=== PATIENT | male | born 1945 | race Caucasian/White ===

== ENCOUNTER 2018-06-11 06:01 | Day surgery (SDC) | payer MEDICARE ==
[2018-06-10 12:37] LABS: BASOPHILS # (AUTO) 0.1 X10'3 (0-0.2); BASOPHILS % (AUTO) 1.1 % (0-1); EOSINOPHILS # (AUTO) 0.1 X10'3 (0-0.9); EOSINOPHILS % (AUTO) 1.4 % (0-6); HEMATOCRIT 42.9 % (42.0-52.0); HEMOGLOBIN 14.4 g/dl (14.0-17.9); LYMPHOCYTES % (AUTO) 18.2 % (21-51); MEAN CORPUSCULAR HEMOGLOBIN 30.3 PG (27.0-31.0); MEAN CORPUSCULAR HGB CONC 33.6 g/dL (33.0-36.5); MEAN CORPUSCULAR VOLUME 90.3 FL (78-98); MEAN PLATELET VOLUME 10.8 FL (7.4-10.4); MONOCYTES # (AUTO) 0.6 X10'3 (0-0.9); MONOCYTES % (AUTO) 10.1 % (2-12); NEUTROPHILS # (AUTO) 3.9 X10'3 (1.8-7.7); NEUTROPHILS % (AUTO) 69.2 % (42-75); PLATELET COUNT 160 X10'3 (140-440); RED BLOOD COUNT 4.75 X10'6 (4.70-6.10); WHITE BLOOD COUNT 5.6 X10'3 (4.5-11.0)
[2018-06-10 12:42] LABS: ALBUMIN 3.5 G/DL (3.4-5.0); ANION GAP 8 (8-16); BLOOD UREA NITROGEN 13 MG/DL (7-18); BUN/CREATININE RATIO 12.3 (5.4-32.0); CALCIUM 8.8 MG/DL (8.5-10.1); CHLORIDE 104 MMOL/L (99-107); CREATININE 1.06 MG/DL (0.60-1.10); GLUCOSE 137 MG/DL (70-104); POTASSIUM 3.9 MMOL/L (3.5-5.1); SODIUM 141 MMOL/L (135-145); TOTAL CARBON DIOXIDE 28.8 MMOL/L (24-32); eGFR 69 ML/MIN
[2018-06-10 12:49] LABS: INR 1.1 INR; PARTIAL THROMBOPLASTIN TIME 25 SECONDS (22-32); PROTHROMBIN TIME 10.7 SECONDS (9.0-12.0)
[2018-06-10 13:11] LABS: LARGE PLATELETS FEW; PLATELET ESTIMATE NORMAL
[~2018-06-11] VITALS: Ht 170.2 cm; Wt 71.9 kg
[2018-06-11] VITALS (14 sets, daily range): BP systolic 115–143; BP diastolic 55–99
[~2018-06-11 06:01] MED LIST: ALFU10TA10 PO; ASPI-611 PO; ATOR80TA PO; FINA5TAB11 PO; FLUO20CA39 PO; METO-395 PO; NAPR220C15 PO; NIAC1000 PO; NITR0.4T48 SL; ROSU40TA PO; VENL150C58 PO; VITA400C65 PO
[2018-06-11] MEDS ORDERED: sod bicarbonate 150mEq in D5W 1,150 ML IV ONE (06:20)
[2018-06-11] MEDS ORDERED: LORazepam 0.5 MG tablet PO PRN (06:20)
[2018-06-11] MEDS ORDERED: diphenhydrAMINE 25mg capsule PO PRN (06:20)
[2018-06-11] MEDS ORDERED: METO-539 PO (06:44)
[2018-06-11] MEDS ORDERED: EZET10TA14 PO (06:44)
[2018-06-11] MEDS ORDERED: KRIL1CAP19 PO (06:44)
[2018-06-11] MEDS ORDERED: ROSU20TA2 PO (06:44)
[2018-06-11] MEDS ORDERED: normal saline 1000ml 1,000 ML IV SCH (07:05)
[2018-06-11] MEDS ORDERED: verapamil 2.5 mg/ml inj IV ONE (07:44)
[2018-06-11] MEDS ORDERED: iohexol 350MG/ML 100ml bottle IV ONE ×3 (07:44→09:15)
[2018-06-11] MEDS ORDERED: heparin 1,000unit/ml 10ml vial 10 ML ONE ×2 (07:44→10:15)
[2018-06-11] MEDS ORDERED: nitroGLYCERIN-Tridil 50MG/D5W 250 ML IV ONE (07:44)
[2018-06-11] MEDS ORDERED: fentaNYL/PF 50MCG/1 ML 2ML syringe ONE (07:44)
[2018-06-11] MEDS ORDERED: LIDOcaine 1% (10mg/ml)w/preservative injection 20ml MDV ONE (07:44)
[2018-06-11] MEDS ORDERED: midazolam 2 mg/2 ml injection ONE (07:44)
[2018-06-11] MEDS ORDERED: iohexol 350 MG/ML 50ML vial IV ONE (07:44)
[2018-06-11] MEDS ORDERED: heparin 25,000 UNIT/250ml bag 250 ML IV ONE (09:01)
[2018-06-11] MEDS ORDERED: heparin 1,000 UNITS/NS 500ml 500 ML ONE (09:12)
[2018-06-11] MEDS ORDERED: atropine 0.1mg/ml 10ml syringe ONE (09:28)
[2018-06-11] MEDS ORDERED: ticagrelor 90mg tablet ONE (10:11)
[2018-06-11] MEDS ORDERED: HYDROcodone/acetaminophen 5mg/325mg tablet PO PRN (12:05)
[2018-06-11] MEDS ORDERED: proCHLORperazine 10 MG/2 ml inj IV PRN (12:05)
[2018-06-11] MEDS ORDERED: OXAZEpam 15mg capsule PO PRN (12:05)
[2018-06-11] MEDS ORDERED: ondansetron/PF 4mg/2ml inj IV PRN (12:05)
[2018-06-11] MEDS ORDERED: HYDROcodone/acetaminophen 10/325mg tab PO PRN (12:05)
[2018-06-11] MEDS ORDERED: aspirin 81mg tab.chew PO ONE (16:05)
[2018-06-11] MEDS ORDERED: acetylcysteine 200 MG/ml 4ml vial PO SCH (20:00)
== END 2018-06-11 19:10 | disposition home or self-care (01) ==
LOC: SSTAY O 06:01
PROVIDERS: ATTEND Internal Medicine Cardiovascular Disease
DX: I25.10 Atherosclerotic heart disease of native coronary artery without angina pectoris (principal); I10 Essential (primary) hypertension; E78.5 Hyperlipidemia, unspecified; F32.9 Major depressive disorder, single episode, unspecified; Z95.1 Presence of aortocoronary bypass graft; Z79.82 Long term (current) use of aspirin; Z98.890 Other specified postprocedural states
CPT/HCPCS: 36415; 80048; 85025; 85347; 85610; 85730; 93005; 93459; 99152; 99153; C1874; C9600; J0461; J1644; J2001; J2250; J3010; J7030; Q0163; Q9967; A4620; C1725; C1769; J3490

== ENCOUNTER 2018-10-17 12:06 | Day surgery (SDC) | payer MEDICARE ==
[2018-10-16 10:51] LABS: BASOPHILS # (AUTO) 0.1 X10'3 (0-0.2); EOSINOPHILS # (AUTO) 0.2 X10'3 (0-0.9); EOSINOPHILS % (AUTO) 2.4 % (0-6); HEMATOCRIT 45.5 % (42.0-52.0); HEMOGLOBIN 15.2 g/dl (14.0-17.9); LYMPHOCYTES # (AUTO) 1.1 X10'3 (1.1-4.8); LYMPHOCYTES % (AUTO) 17.4 % (21-51); MEAN CORPUSCULAR HEMOGLOBIN 30.6 PG (27.0-31.0); MEAN CORPUSCULAR HGB CONC 33.4 g/dL (33.0-36.5); MEAN CORPUSCULAR VOLUME 91.8 FL (78-98); MEAN PLATELET VOLUME 11.9 FL (7.4-10.4); MONOCYTES # (AUTO) 0.6 X10'3 (0-0.9); MONOCYTES % (AUTO) 9.9 % (2-12); NEUTROPHILS # (AUTO) 4.5 X10'3 (1.8-7.7); NEUTROPHILS % (AUTO) 69.3 % (42-75); PLATELET COUNT 136 X10'3 (140-440); RED BLOOD COUNT 4.96 X10'6 (4.70-6.10); RED CELL DISTRIBUTION WIDTH 13.1 % (11.5-14.5); WHITE BLOOD COUNT 6.5 X10'3 (4.5-11.0)
[2018-10-16 10:58] LABS: ALBUMIN 3.6 G/DL (3.4-5.0); ANION GAP 7 (8-16); BLOOD UREA NITROGEN 12 MG/DL (7-18); BUN/CREATININE RATIO 11.1 (5.4-32.0); CALCIUM 8.6 MG/DL (8.5-10.1); CHLORIDE 106 MMOL/L (99-107); CREATININE 1.08 MG/DL (0.60-1.10); GLUCOSE 104 MG/DL (70-104); POTASSIUM 3.8 MMOL/L (3.5-5.1); SODIUM 139 MMOL/L (135-145); TOTAL CARBON DIOXIDE 26.2 MMOL/L (24-32); eGFR 67 ML/MIN
[2018-10-16 11:05] LABS: PARTIAL THROMBOPLASTIN TIME 26 SECONDS (22-32)
[2018-10-16 11:14] LABS: LARGE PLATELETS FEW; PLATELET ESTIMATE DECREASED
[2018-10-17] VITALS (9 sets, daily range): BP systolic 97–138; BP diastolic 55–71
[~2018-10-17] VITALS: Ht 170.2 cm; Wt 67.0 kg
[~2018-10-17 12:06] MED LIST changes: -ATOR80TA PO; +EZET10TA14 PO; -FINA5TAB11 PO; +KRIL1CAP19 PO; -METO-395 PO; +METO-539 PO; -NAPR220C15 PO; +ROSU20TA2 PO; -ROSU40TA PO; -VENL150C58 PO
[2018-10-17] MEDS ORDERED: TICA90TA PO (12:28)
[2018-10-17] MEDS ORDERED: OMEP40CA37 PO (12:28)
[2018-10-17] MEDS ORDERED: LORazepam 0.5 MG tablet PO PRN (12:35)
[2018-10-17] MEDS ORDERED: diphenhydrAMINE 25mg capsule PO PRN (12:35)
[2018-10-17] MEDS ORDERED: normal saline 1000ml 1,000 ML IV SCH (12:45)
[2018-10-17] MEDS ORDERED: fentaNYL/PF 50MCG/1 ML 2ML syringe ONE (14:44)
[2018-10-17] MEDS ORDERED: nitroGLYCERIN-Tridil 50MG/D5W 250 ML IV ONE (14:44)
[2018-10-17] MEDS ORDERED: iohexol 350 MG/ML 50ML vial IV ONE (14:45)
[2018-10-17] MEDS ORDERED: LIDOcaine 1% (10mg/ml)w/preservative injection 20ml MDV ONE (14:45)
[2018-10-17] MEDS ORDERED: midazolam 2 mg/2 ml injection ONE (14:45)
[2018-10-17] MEDS ORDERED: heparin 1,000unit/ml 10ml vial 10 ML ONE (14:45)
[2018-10-17] MEDS ORDERED: iohexol 350MG/ML 100ml bottle IV ONE ×2 (14:45→15:24)
== END 2018-10-17 19:45 | disposition home or self-care (01) ==
LOC: SSTAY O 12:06
PROVIDERS: ATTEND Internal Medicine Cardiovascular Disease
DX: I25.10 Atherosclerotic heart disease of native coronary artery without angina pectoris (principal); T82.898A Other specified complication of vascular prosthetic devices, implants and grafts, initial encounter; I25.82 Chronic total occlusion of coronary artery; I10 Essential (primary) hypertension; E78.5 Hyperlipidemia, unspecified; F32.9 Major depressive disorder, single episode, unspecified; Z98.890 Other specified postprocedural states; Z95.1 Presence of aortocoronary bypass graft; Z79.899 Other long term (current) drug therapy; Z79.82 Long term (current) use of aspirin; Y83.8 Other surgical procedures as the cause of abnormal reaction of the patient, or of later complication, without mention of misadventure at the time of the procedure
CPT/HCPCS: 36415; 80048; 85025; 85610; 85730; 93005; 93459; 99152; 99153; C1760; C1769; J1644; J2001; J2250; J3010; J7030; Q0163; Q9967; A4620; A6258; J3490

== ENCOUNTER 2021-08-25 11:58 | Day surgery (SDC) | payer MEDICARE ==
[2021-08-24 13:09] LABS: BASOPHILS # (AUTO) 0.1 X10'3 (0-0.2); BASOPHILS % (AUTO) 1.1 % (0-1); EOSINOPHILS % (AUTO) 0.8 % (0-6); HEMATOCRIT 41.5 % (42.0-52.0); HEMOGLOBIN 13.7 g/dl (14.0-17.9); LYMPHOCYTES # (AUTO) 1.1 X10'3 (1.1-4.8); LYMPHOCYTES % (AUTO) 17.6 % (21-51); MEAN CORPUSCULAR HEMOGLOBIN 29.9 PG (27.0-31.0); MEAN CORPUSCULAR VOLUME 90.4 FL (78-98); MEAN PLATELET VOLUME 10.8 FL (7.4-10.4); MONOCYTES # (AUTO) 0.6 X10'3 (0-0.9); MONOCYTES % (AUTO) 10.3 % (2-12); NEUTROPHILS # (AUTO) 4.2 X10'3 (1.8-7.7); NEUTROPHILS % (AUTO) 70.2 % (42-75); PLATELET COUNT 133 X10'3 (140-440); RED BLOOD COUNT 4.59 X10'6 (4.70-6.10)
[2021-08-24 13:18] LABS: ALBUMIN 3.6 G/DL (3.4-5.0); ANION GAP 5 (8-16); BLOOD UREA NITROGEN 17 MG/DL (7-18); BUN/CREATININE RATIO 16.8 (5.4-32.0); CALCIUM 8.5 MG/DL (8.5-10.1); CHLORIDE 108 MMOL/L (99-107); CREATININE 1.01 MG/DL (0.60-1.10); GLUCOSE 89 MG/DL (70-104); POTASSIUM 3.7 MMOL/L (3.5-5.1); SODIUM 141 MMOL/L (135-145); TOTAL CARBON DIOXIDE 27.8 MMOL/L (24-32); eGFR 72 ML/MIN
[2021-08-24 13:22] LABS: APTT 24 SECONDS (22-32)
[2021-08-24 13:41] LABS: LARGE PLATELETS FEW; PLATELET ESTIMATE DECREASED
[~2021-08-25] VITALS: Ht 170.2 cm; Wt 67.9 kg
[2021-08-25] VITALS (17 sets, daily range): BP systolic 96–165; BP diastolic 31–82
[~2021-08-25 11:58] MED LIST changes: -EZET10TA14 PO; +EZET10TA6 PO; +IOHEXOL 350 MG/ML INFUS..BTL 125ML IV ONE; +LIDOcaine 1% 30ml preserv. free vial ONE; -NIAC1000 PO; +OMEP40CA21 PO; +TICA90TA PO; +VITA-134 PO; -VITA400C65 PO; +fentaNYL/PF 50MCG/1 ML 2ML syringe ONE; +heparin 1,000unit/ml 10ml vial 10 ML ONE; +midazolam 1 mg/ML 2ml injection ONE
[2021-08-25] MEDS ORDERED: CLOP75TA33 PO (12:48)
[2021-08-25] MEDS ORDERED: ISOS60TA71 PO (12:48)
[2021-08-25] MEDS ORDERED: CYAN-34 PO (12:48)
[2021-08-25] MEDS ORDERED: LORazepam 0.5 MG tablet PO PRN (12:50)
[2021-08-25] MEDS ORDERED: normal saline 1,000 ML IV SCH (12:50)
[2021-08-25] MEDS ORDERED: diphenhydrAMINE 25mg capsule PO PRN (12:50)
[2021-08-25] MEDS ORDERED: diphenhydrAMINE 50 mg/ml inj ONE (13:22)
[2021-08-25] MEDS ORDERED: heparin 25,000 UNIT/250ml bag 250 ML IV ONE (13:55)
[2021-08-25] MEDS ORDERED: IOHEXOL 350 MG/ML INFUS..BTL 125ML IV ONE (13:57)
[2021-08-25] MEDS ORDERED: clopidogrel 300mg tablet ONE (14:43)
--- NOTE | 2021-08-25 16:40 | NUR ---
ACT 172. Mynx closure device deployed by RASHAD.
--- NOTE | 2021-08-25 23:32 | NUR ---
DAUGHTER BACK TO BEDSIDE, iv REMOVED, PRESSURE DRESSING REMAINS IN PLACE. AMBULATED TO BATHROOM TO CHANGE WITH NO DIFFICULTIES. +CSM. ALL BELONGINGS SENT HOME WITH PT AND PT DAUGHTER. PT ALREADY HAS HOME MEDICATIONS PLAVIX AND ASA. POST CATH INSTRUCTIONS GIVEN AND REVIEWED. PT DISCHARGED OFF FLOOR WITH TECH VIA WHEELCHAIR WITH DAUGHTER.
== END 2021-08-25 23:38 | disposition home or self-care (01) ==
LOC: SSTAY O 11:58 → PCU 3S 18:58 → SSTAY O 23:38
PROVIDERS: ATTEND Internal Medicine Cardiovascular Disease
DX: R94.39 Abnormal result of other cardiovascular function study (principal); I25.810 Atherosclerosis of coronary artery bypass graft(s) without angina pectoris; I10 Essential (primary) hypertension; E78.49 Other hyperlipidemia; F32.A Depression, unspecified; Z79.82 Long term (current) use of aspirin; Z79.899 Other long term (current) drug therapy; Z79.01 Long term (current) use of anticoagulants; Z98.890 Other specified postprocedural states; Z82.49 Family history of ischemic heart disease and other diseases of the circulatory system
CPT/HCPCS: 36415; 76937; 80048; 85025; 85347; 85610; 85730; 92921; 93005; 93459; 99152; 99153; C1725; C1751; C1760; C1769; C1874; C9600; C9604; J1200; J1644; J2250; J3010; J3490; Q9967; 85008; 92920; A4620; A6258; G0378